=== PATIENT | female | born 1995 | race Caucasian/White ===

== ENCOUNTER → 2023-10-24 14:06 | Outpatient (REF) | payer BC, SELFPAY | LOC: PNTC 14:06 | PROVIDERS: ATTENDING PHYSICIAN Obstetrics & Gynecology | DX: Z36.82 Encounter for antenatal screening for nuchal translucency (principal); Z36.0 Encounter for antenatal screening for chromosomal anomalies | CPT/HCPCS: 36415; 76801; 76802; 76813; 76814 ==

== ENCOUNTER → 2023-11-21 13:14 | Outpatient (REF) | payer BC, SELFPAY | LOC: PNTC 13:14 | PROVIDERS: ATTENDING PHYSICIAN Obstetrics & Gynecology | DX: O30.049 Twin pregnancy, dichorionic/diamniotic, unspecified trimester (principal) | CPT/HCPCS: 36415; 76805; 76810 ==

== ENCOUNTER → 2023-12-16 14:45 | Outpatient (REF) | payer BC, SELFPAY | LOC: PNTC 14:45 | PROVIDERS: ATTENDING PHYSICIAN Obstetrics & Gynecology | DX: O30.049 Twin pregnancy, dichorionic/diamniotic, unspecified trimester (principal) | CPT/HCPCS: 76811; 76812 ==

== ENCOUNTER → 2024-01-16 14:46 | Outpatient (REF) | payer OTHER, SELFPAY | LOC: PNTC 14:46 | PROVIDERS: ATTENDING PHYSICIAN Obstetrics & Gynecology | DX: O30.049 Twin pregnancy, dichorionic/diamniotic, unspecified trimester (principal) | CPT/HCPCS: 76816 ==

== ENCOUNTER → 2024-02-18 14:25 | Outpatient (REF) | payer OTHER, SELFPAY | LOC: PNTC 14:25 | PROVIDERS: ATTENDING PHYSICIAN Obstetrics & Gynecology | DX: O30.049 Twin pregnancy, dichorionic/diamniotic, unspecified trimester (principal) | CPT/HCPCS: 76816 ==

== ENCOUNTER → 2024-02-19 10:51 | Outpatient (REF) | payer OTHER, SELFPAY ==
--- NOTE | 2024-02-19 07:04 | PN.DIAED06 ---
Meal Plan - Gestational
- Breakfast
Gestational Diabetes Meal Plan Name: 2000 calories
Breakfast - Total Carbohydrate (grams): 45
Breakfast - Starch Carbohydrate: 2
Breakfast - Fruit Carbohydrate: 0
Breakfast - Milk Carbohydrate: 1
Breakfast - Nonstarchy Vegetables: Yes
Breakfast - Meat/Protein: 1
Breakfast - Fat: 2
- Morning Snack
Morning Snack - Total Carbohydrate (grams): 30
Morning Snack - Starch Carbohydrate: 1
Morning Snack - Fruit Carbohydrate: 0
Morning Snack - Milk Carbohydrate: 1
Morning Snack - Nonstarchy Vegetables: Yes
Morning Snack - Meat/Protein: 0
Morning Snack - Fat: 0
- Lunch
Lunch - Total Carbohydrate (grams): 45
Lunch - Starch Carbohydrate: 1
Lunch - Fruit Carbohydrate: 1
Lunch - Milk Carbohydrate: 1
Lunch - Nonstarchy Vegetables: Yes
Lunch - Meat/Protein: 2
Lunch - Fat: 2
- Afternoon Snack
Afternoon Snack - Total Carbohydrate (grams): 30
Afternoon Snack - Starch Carbohydrate: 1
Afternoon Snack - Fruit Carbohydrate: 1
Afternoon Snack - Milk Carbohydrate: 0
Afternoon Snack - Nonstarchy Vegetables: Yes
Afternoon Snack - Meat/Protein: 1
Afternoon Snack - Fat: 0
- Dinner
Dinner - Total Carbohydrate (grams): 45
Dinner - Starch Carbohydrate: 2
Dinner - Fruit Carbohydrate: 1
Dinner - Milk Carbohydrate: 0
Dinner - Nonstarchy Vegetables: Yes
Dinner - Meat/Protein: 2
Dinner - Fat: 2
- Evening Snack
Evening Snack - Total Carbohydrate (grams): 45
Evening Snack - Starch Carbohydrate: 1
Evening Snack - Fruit Carbohydrate: 1
Evening Snack - Milk Carbohydrate: 1
Evening Snack - Nonstarchy Vegetables: Yes
Evening Snack - Meat/Protein: 1
Evening Snack - Fat: 0
--- NOTE | 2024-02-19 12:40 | PN.DE ---
Diabetes Education
- -
02/19/2024 Gestational Diabetes Education Consult
Patient referred by [facility] with gestational diabetes. G1, P0 EDC 05/02/2024 with twin girls. Provided gestational education booklet and reviewed risk factors, glucose results from testing, components of care. Patient verbalized
understanding.
Provided 2000 calorie Gestational diet and dietary booklet. Reviewed all carbohydrate protein and fats as well as serving sizes and number of serving sizes for each meal and snack. Patient able to plan a full days menu with snacks.
Patient checked with insurance regarding glucose monitor, she is not sure what is covered. Provided Contour next glucose monitor and instructed on steps for testing. Patient able to return demonstrate without difficulty. To test fasting and 2
hours after each meal. Highlighted glucose ranges in booklet. Patient to call Perinatologist at [facility], and report weekly.
== END ==
LOC: DES 10:51
PROVIDERS: ATTENDING PHYSICIAN Student in an Organized Health Care Education/Training Program
DX: O24.419 Gestational diabetes mellitus in pregnancy, unspecified control (principal)
CPT/HCPCS: 99078

== ENCOUNTER → 2024-03-09 08:16 | Outpatient (REF) | payer OTHER, SELFPAY | LOC: PNTC 08:16 | PROVIDERS: ATTENDING PHYSICIAN Obstetrics & Gynecology | DX: O30.049 Twin pregnancy, dichorionic/diamniotic, unspecified trimester (principal) | CPT/HCPCS: 59025; 76815 ==

== ENCOUNTER → 2024-03-16 06:53 | Outpatient (REF) | payer OTHER, SELFPAY | LOC: PNTC 06:53 | PROVIDERS: ATTENDING PHYSICIAN Obstetrics & Gynecology | DX: O30.049 Twin pregnancy, dichorionic/diamniotic, unspecified trimester (principal) | CPT/HCPCS: 59025; 76816; 76820 ==

== ENCOUNTER → 2024-03-23 08:16 | Outpatient (REF) | payer OTHER, SELFPAY | LOC: PNTC 08:16 | PROVIDERS: ATTENDING PHYSICIAN Obstetrics & Gynecology | DX: O30.049 Twin pregnancy, dichorionic/diamniotic, unspecified trimester (principal) | CPT/HCPCS: 59025; 76815 ==

== ENCOUNTER → 2024-03-30 08:46 | Outpatient (REF) | payer OTHER, SELFPAY | LOC: PNTC 08:46 | PROVIDERS: ATTENDING PHYSICIAN Obstetrics & Gynecology | DX: O30.049 Twin pregnancy, dichorionic/diamniotic, unspecified trimester (principal) | CPT/HCPCS: 59025; 76815; 76820 ==

== ENCOUNTER → 2024-04-06 08:19 | Outpatient (REF) | payer OTHER, SELFPAY | LOC: PNTC 08:19 | PROVIDERS: ATTENDING PHYSICIAN Obstetrics & Gynecology | DX: O30.049 Twin pregnancy, dichorionic/diamniotic, unspecified trimester (principal) | CPT/HCPCS: 59025; 76816; 76820; 87070 ==

== ENCOUNTER 2024-04-12 21:30 | Inpatient (IN) | payer OTHER, SELFPAY ==
[2024-04-12 21:39] VITALS: BMI 32.3
[2024-04-12] MEDS: LR 1000 IV (21:45)
[2024-04-12 21:50] VITALS: BP 131/84
[2024-04-12 21:56] LABS: Glucose - Point of Care 71 mg/dl (70-99)
[2024-04-12 22:04] LABS: Hematocrit 34.5 % (37.0-47.0); Hemoglobin 11.7 g/dL (12.0-16.0); Mean Corp Hgb Conc. 33.9 g/dL (33.0-37.0); Mean Corpuscular Hgb 28.1 pg (27.0-31.0); Mean Corpuscular Volume 82.9 fL (81.0-99.0); Mean Platelet Volume 10.3 fL (7.4-10.4); Platelet Count 230 10^3/uL (130-400); Red Blood Cell Count 4.16 10^6/uL (4.20-5.40); Red Cell Dist. Width 13.9 % (11.5-14.5); White Blood Cell Count 11.8 10^3/uL (4.8-10.8)
[2024-04-12] MEDS: ZITHROMAX INFUSION 250 IV (22:13)
[2024-04-12] MEDS: BICITRA 30 ML PO (22:13)
[2024-04-12] MEDS: TYLENOL 1000 MG PO (22:13)
[2024-04-12] MEDS: ANCEF 10 IV (22:14)
--- NOTE | 2024-04-12 23:39 | W.IMMPOSTOP ---
Surgical Immed Post Op Note
-
Primary Surgeon: Heather Montoya DO
Assisting Surgeon: Patrica Salamanca RN
Pre-op Diagnosis: Di/di twin gestation at 37+1wks, Twin A Breech presentation, Mild growth restriction (19th percentile) Twin A, A1 GDM
Post-op Diagnosis: Same as above
Procedure Performed: PLTCS
Anesthesia Type: Spinal
Specimen / Cultures: Placentas to pathology; cord blood x2 to lab for maternal ABO
Estimated Blood Loss: 435ml
Complications: none
Operative Findings: Normal appearing uterus, b/l tubes and ovaries. Twin A delivered first, breech, no nuchal cord, clear amniotic fluid, female , Apgars 8/9, wt 5lbs 8oz; Twin B cephalic, no nuchal cord, clear amniotic fluid, female ,
Apgars 8/9, weight 6lbs 5oz. Mild atony, resolved with IV pitocin and Methergine x1 dose IM.
Eric Montoya DO
[2024-04-13] MEDS: MORPHINE SULFATE 2 MG IV (00:38)
[2024-04-13] MEDS: TORADOL IV (00:45)
[2024-04-13] MEDS: CYTOTEC 800 MCG RECTAL (02:17)
[2024-04-13] MEDS: PITOCIN 30 UNITS/NSS 500 ML IV (02:18)
[2024-04-13] MEDS: TORADOL 15 MG IV ×3 (05:56→17:29)
[2024-04-13 06:17] LABS: Hematocrit 35.3 % (37.0-47.0); Hemoglobin 11.9 g/dL (12.0-16.0); Mean Corp Hgb Conc. 33.7 g/dL (33.0-37.0); Mean Corpuscular Hgb 28.1 pg (27.0-31.0); Mean Corpuscular Volume 83.5 fL (81.0-99.0); Mean Platelet Volume 10.7 fL (7.4-10.4); Platelet Count 219 10^3/uL (130-400); Red Blood Cell Count 4.23 10^6/uL (4.20-5.40); Red Cell Dist. Width 13.8 % (11.5-14.5); White Blood Cell Count 20.8 10^3/uL (4.8-10.8)
--- NOTE | 2024-04-13 08:01 | W.PN.ANS.POP ---
Anesthesia Post Operative
- Anesthesia Post Op Note
Vital Signs Stable-See Nursing Note: Yes
Airway Patent: Yes
Adequate Pain Control: Yes
Change in Mental Status: No
Current Postoperative Nausea & Vomiting: No
Anesthesia Complications: No
General Anesthetic Recall: No
Unplanned Admission: No
Post Op Hydration Adequate: Yes
[2024-04-13] MEDS: PRENATAL PLUS 1 TABLET PO (08:22)
[2024-04-13] MEDS: MOTRIN 600 MG PO (23:41)
[2024-04-13] MEDS: TYLENOL 650 MG PO (23:41)
[2024-04-14] MEDS: MOTRIN 600 MG PO ×3 (06:34→20:11)
[2024-04-14] MEDS: TYLENOL 650 MG PO ×3 (06:34→20:11)
[2024-04-14] MEDS: PRENATAL PLUS 1 TABLET PO (08:34)
[2024-04-14 12:38] LABS: Syphilis/T. pallidum Ab Reflex Negative (Negative)
[2024-04-15] MEDS: TYLENOL 650 MG PO ×2 (05:30→12:35)
[2024-04-15] MEDS: MOTRIN 600 MG PO ×2 (05:30→12:35)
[2024-04-15] MEDS: SENOKOT-S 1 TABLET PO (08:28)
[2024-04-15] MEDS: PRENATAL PLUS 1 TABLET PO (08:28)
[2024-04-15 10:24] LABS: Hematocrit 29.3 % (37.0-47.0); Mean Corp Hgb Conc. 34.1 g/dL (33.0-37.0); Mean Corpuscular Volume 84.9 fL (81.0-99.0); Mean Platelet Volume 10.2 fL (7.4-10.4); Platelet Count 227 10^3/uL (130-400); Red Blood Cell Count 3.45 10^6/uL (4.20-5.40); Red Cell Dist. Width 14.3 % (11.5-14.5)
[2024-04-15 11:19] LABS: ALT (SGPT) 21 U/L (0-35); AST (SGOT) 44 U/L (14-36); Alkaline Phosphatase 114 U/L (38-126); Blood Urea Nitrogen 10 mg/dl (7-17); Calcium 8.5 mg/dl (8.4-10.2); Carbon Dioxide 19 mmol/L (22-30); Chloride 110 mmol/L (98-107); Estimated Creatinine Clearance > 125 ml/min; Glucose 101 mg/dl (70-99); Potassium 4.1 mmol/L (3.5-5.1); Sodium 140 mmol/L (135-145); Total Bilirubin 0.2 mg/dl (0.2-1.3); Total Protein 5.2 g/dl (6.3-8.2); eGFR > 60.00
--- NOTE | 2024-04-15 16:32 | W.DCSUMMARY ---
Discharge Summary
Discharge Data
Date of Admission: 04/12/24
Date of Discharge: 04/15/24
-
Pending Results: No
Hospital Course
Principal Discharge diagnosis : status post low transverse at 37w1d secondary to prelabor rupture of membranes, breech presentation of fetus A; course complicated by di-di twin gestation, diet-controlled gestational diabetes,
mild growth restriction of twin A; Gestational hypertension, diagnosed
Hospital Course : 28yo at 37w1d with di-di twin intrauterine who presented to hospital 04/12/24 for leakage of fluid. She was found to have prelabor rupture of membranes. She underwent primary low transverse due to breech
presentation of twin A. She had mild uterine atony, for which she received IV pitocin, IM methergine, and [place] cytotec. she had elevated BPs, meeting criteria for gestational hypertension. On day of discharge she was stable.
Discharge Plan
-
Patient Disposition: Home (Routine Discharge)
Discharge Diagnosis/Procedures: s/p low transverse at 37w1d secondary to prelabor rupture of membranes, breech presentation of fetus A; course complicated by di-di twin gestation, diet-controlled gestational diabetes, mild growth
restriction of twin A; Gestational hypertension, diagnosed
Condition: Good
Activity Restrictions/Additional Instructions:
Monitor your blood pressure at home and notify your physician immediately for any systolic reading >160 or diastolic reading >110, OR if you are experiencing a headache that does not resolve with usual measures (tylenol, motrin,hydration, rest),
visual symptoms or right upper abdominal pain.
Stand Alone Forms: LDRP Delivery, LDRP Hypertensive Disorders
Referrals:
Matt Lyn MD [Active] - in one week (Call the [facility] office to schedule appointment in 1 week for BP check and incision check)
Mary Kay Guillory DO [Family Provider] -
Prescriptions:
New
acetaminophen 325 mg Tablet
650 mg PO Q4HPRN PRN (Reason: mild pain) Qty: 0 0RF
sennosides-docusate sodium 8.6-50 mg Tablet
1 tab PO DAILYPRN PRN (Reason: constipation) Qty: 0 0RF
oxycodone 5 mg Tablet
5 mg PO Q4HPRN PRN (Reason: severe pain) Qty: 5 0RF
ibuprofen 600 mg Tablet
600 mg PO Q6HPRN PRN (Reason: cramps) Qty: 60 0RF
Continued
Vitamin
1 tab PO DAILY
Discontinued
(DME) Contour Next Test Strips Strip
Qty: 200 0RF
Rx Instructions:
Test glucose fasting and 2 hours after each meal As Directed
024.41
(DME) lancets [Lancets,Ultra Thin] Misc
Qty: 200 0RF
Rx Instructions:
Test glucose fasting and 2 hours after each meal As Directed
024.41 As Directed
Contour Next lancets
Discharge Orders:
Discharge Patient (As Directed); Ordered 04/15/24
Ordered By: Heather Montoya
Discharge Date and Time
Print Language: YAKUT
== END 2024-04-15 17:28 | disposition home or self-care (01) | DRG 788 ==
LOC: LDRP 21:30
PROVIDERS: Obstetrics & Gynecology; ADMITTING PHYSICIAN Obstetrics & Gynecology; FAMILY PHYSICIAN Family Medicine
PROC: 10D00Z1 Extraction of Products of Conception, Low, Open Approach (ICD-10-PCS; 2024-04-12)
DX: O32.1XX1 Maternal care for breech presentation, fetus 1 (principal); O24.420 Gestational diabetes mellitus in childbirth, diet controlled; O62.2 Other uterine inertia; O36.5931 Maternal care for other known or suspected poor fetal growth, third trimester, fetus 1; O30.043 Twin pregnancy, dichorionic/diamniotic, third trimester; O13.5 Gestational [pregnancy-induced] hypertension without significant proteinuria, complicating the puerperium; Z37.2 Twins, both liveborn; Z3A.37 37 weeks gestation of pregnancy
CPT/HCPCS: 88307; 80053; 82962; 85027; 86780; 86850; 86900; 86901; 99406